=== PATIENT | male | born 1960 | race African-American/Black ===

== ENCOUNTER 2017-05-15 04:48 | Emergency (ER) | payer MEDICAID ==
[~2017-05-15] VITALS: Ht 175.3 cm; Wt 117.9 kg
[2017-05-15 05:17] VITALS: BP 135/72
[2017-05-15] MEDS ORDERED: KETOROLAC TROMETH 60MG/2ML VIAL IM ONE (10:15)
== END 2017-05-15 10:42 | disposition left against medical advice (07) ==
LOC: ER 04:51
DX: S33.5XXA Sprain of ligaments of lumbar spine, initial encounter (principal); Z53.29 Procedure and treatment not carried out because of patient's decision for other reasons; X58.XXXA Exposure to other specified factors, initial encounter; Y93.89 Activity, other specified; Y99.8 Other external cause status; Y92.89 Other specified places as the place of occurrence of the external cause
CPT/HCPCS: 72100; 99284; J1885